=== PATIENT | male | born 1960 | race African-American/Black ===

== ENCOUNTER → 2020-04-11 | Outpatient (CLI) | payer BC ==
[~2020-04-11] MED LIST: ACET-2708 MT; CYCL10TA7 PO; HYDR12.54; LOSA1TAB34 MT; MICAR4
== END | disposition home or self-care (01) ==
LOC: LAB 11:42
PROVIDERS: ATTEND Neurological Surgery
DX: Z01.818 Encounter for other preprocedural examination (principal); Z11.59 Encounter for screening for other viral diseases
CPT/HCPCS: C9803; U0003

== ENCOUNTER 2020-04-14 05:25 | Inpatient (IN) | payer BC ==
[~2020-04-14] VITALS: Ht 167.6 cm; Wt 89.0 kg
[2020-04-14] VITALS (63 sets, daily range): BP systolic 0–161; BP diastolic 0–113
[2020-04-14] MEDS ORDERED: LACTATED RINGERS 1,000 ML IV SCH (06:30)
[2020-04-14] MEDS ORDERED: LIDOCAINE HCL/EPINEPHRINE 1%-EPI 1:100,000 20 ML VIAL ONE (06:34)
[2020-04-14] MEDS ORDERED: BACITRACIN 50,000 UNITS/VIAL ONE (06:34)
[2020-04-14] MEDS ORDERED: THROMBIN (BOVINE) 5000 UNITS/VIAL TOP ONE (06:34)
[2020-04-14] MEDS ORDERED: PROPOFOL 200MG/20ML VIAL IV ONE (07:20)
[2020-04-14] MEDS ORDERED: MORPHINE SULFATE 4 MG/ML CPJ (NOT FOR IM USE) IV PRN (07:30)
[2020-04-14] MEDS ORDERED: HYDROMORPHONE HCL/PF 2MG/ML (OR) ONE (07:35)
[2020-04-14] MEDS ORDERED: NICARDIPINE 100 MG in SODIUM CHLORIDE 0.9% 60 ML IV PRN (09:00)
[2020-04-14] MEDS: DEXT 5%/LACTATED RINGERS 1,000 ML IV SCH ×3 (09:00→20:28)
[2020-04-14] MEDS ORDERED: GLYCOPYRROLATE 0.2 MG/ML 2ML VIAL ONE (09:19)
[2020-04-14] MEDS ORDERED: DIPHENHYDRAMINE INJ IV PRN (10:00)
[2020-04-14] MEDS ORDERED: HYDROMORPHONE PCA 10MG/50ML IV PRN (10:00)
[2020-04-14] MEDS ORDERED: NALOXONE INJ IV PRN (10:00)
[2020-04-14] MEDS ORDERED: ONDANSETRON INJ IV PRN (10:00)
[2020-04-14] MEDS ORDERED: IPRATROPIUM/ALBUTEROL 0.5-3(2.5)MG/3ML NEB HHN PRN (11:45)
[2020-04-14] MEDS: DEXAMETHASONE 4MG/ML 1ML VIAL IV SCH ×3 (12:10→23:36)
[2020-04-14] MEDS: LOSARTAN POTASSIUM 50 MG TABLET PO SCH (13:15)
[2020-04-14] MEDS: CEFAZOLIN 1000MG PREMIX 50 ML IV SCH ×2 (14:00→21:02)
[2020-04-14] MEDS ORDERED: CEFAZOLIN 1000MG PREMIX 50 ML IV SCH (14:00)
[2020-04-14] MEDS ORDERED: CEFAZOLIN SODIUM 1000MG/VIAL IV SCH (14:00)
[2020-04-14 16:23] LABS: HEMATOCRIT. 41.3 % (42.0-52.0); HEMOGLOBIN. 13.6 g/dL (14.0-18.0); MEAN CORPUSCULAR HEMOGLOBIN 26.3 pg (28.0-32.0); MEAN PLATELET VOLUME 8.2 fl (7.4-10.4); PLATELET 293 x1000/uL (130-400); RED BLOOD CELL COUNT 5.16 mill/uL (4.7-6.1); RED CELL DISTRIBUTION WIDTH 17.8 % (11.6-14.6)
[2020-04-14 16:40] LABS: CHLORIDE 105 mEq/L (98-107)
[2020-04-14 18:09] LABS: PLATELET ESTIMATE NORMAL
[2020-04-14] MEDS: THROAT LOZENGES-BENZOCAINE/MENTH/CETYLPYRD CL LOZENGES MM PRN ×2 (19:07→23:40)
[2020-04-14] MEDS: GUAIFENESIN 600MG ER TABLET PO SCH (20:28)
[2020-04-15] VITALS (69 sets, daily range): BP systolic 90–147; BP diastolic 50–111
[2020-04-15] MEDS: DEXT 5%/LACTATED RINGERS 1,000 ML IV SCH ×2 (05:11→16:08)
[2020-04-15] MEDS: CEFAZOLIN 1000MG PREMIX 50 ML IV SCH ×2 (05:18→14:12)
[2020-04-15] MEDS: DEXAMETHASONE 4MG/ML 1ML VIAL IV SCH ×2 (05:18→12:04)
[2020-04-15] MEDS: LOSARTAN POTASSIUM 50 MG TABLET PO SCH (09:02)
[2020-04-15] MEDS: GUAIFENESIN 600MG ER TABLET PO SCH ×2 (09:02→21:57)
[2020-04-15 15:50] LABS: CLARITY URINE CLEAR (CLEAR); COLOR URINE YELLOW (YELLOW); KETONES URINE NEGATIVE (NEGATIVE); LEUKOCYTE ESTERASE URINE NEGATIVE (NEGATIVE); NITRITE URINE NEGATIVE (NEGATIVE); OCCULT BLOOD URINE 3+ (NEGATIVE); PH URINE 6.5 (4.5-8.0); PROTEIN URINE TRACE (NEGATIVE); SPECIFIC GRAVITY URINE 1.009 (1.005-1.030); UROBILINOGEN URINE 0.2 E.U./dL (0.2-1.0)
[2020-04-15 16:29] LABS: *AMPHETAMINES SCREEN URINE NEGATIVE (NEGATIVE); *BARBITURATES SCREEN URINE NEGATIVE (NEGATIVE); *BENZODIAZEPINES SCREEN URINE NEGATIVE (NEGATIVE); *COCAINE SCREEN URINE NEGATIVE (NEGATIVE)
[2020-04-15 16:30] LABS: CANNABINOID URINE SCREEN NEGATIVE (NEGATIVE); METHADONE URINE SCREEN NEGATIVE (NEGATIVE); OPIATES URINE SCREEN PRESUMTIVE POSITIVE (NEGATIVE); PHENCYCLIDINE URINE SCREEN NEGATIVE (NEGATIVE)
[2020-04-15] MEDS: BENZONATATE 100MG CAPSULE PO PRN (22:05)
[2020-04-16] VITALS: BP 123/73
[2020-04-16] MEDS: DEXT 5%/LACTATED RINGERS 1,000 ML IV SCH ×3 (00:38→17:00)
[2020-04-16 04:00] VITALS: BP 138/85
[2020-04-16] MEDS: BENZONATATE 100MG CAPSULE PO PRN (06:14)
[2020-04-16 08:33] VITALS: BP 122/76
[2020-04-16] MEDS: LOSARTAN POTASSIUM 50 MG TABLET PO SCH (09:03)
[2020-04-16] MEDS: GUAIFENESIN 600MG ER TABLET PO SCH (09:03)
[2020-04-16 12:15] VITALS: BP 138/87
[2020-04-16] MEDS ORDERED: HYDROCODONE/ACETAMINOPHEN 10/325MG TABLET PO PRN (12:45)
[2020-04-16] MEDS ORDERED: TAMSULOSIN HCL 0.4MG SR CAPSULE PO SCH (13:00)
[2020-04-16] MEDS ORDERED: HYDR-4001 MT ×2 (16:03→16:05)
[2020-04-16 16:30] LABS: BASOPHILS % 0.3 % (0.0-2.0); EOSINOPHILS % 0.1 % (0.0-5.0); HEMATOCRIT. 39.3 % (42.0-52.0); HEMOGLOBIN. 13.1 g/dL (14.0-18.0); LYMPHOCYTES % 11.3 % (20.0-50.0); MEAN CORPUSCULAR HEMOGLOBIN 26.9 pg (28.0-32.0); MEAN CORPUSCULAR VOLUME 80.6 fL (80.0-94.0); MEAN PLATELET VOLUME 8.7 fl (7.4-10.4); MONOCYTES % 9.7 % (2.0-8.0); NEUTROPHILS % 78.6 % (40.0-76.0); PLATELET 270 x1000/uL (130-400); RED BLOOD CELL COUNT 4.88 mill/uL (4.7-6.1); RED CELL DISTRIBUTION WIDTH 18.4 % (11.6-14.6)
[2020-04-16 16:34] LABS: CHLORIDE 109 mEq/L (98-107)
[2020-04-16 16:51] VITALS: BP 150/92
[2020-04-16 17:12] VITALS: BP 122/76
== END 2020-04-16 17:48 | disposition home or self-care (01) | DRG 471 ==
LOC: OR 05:25 → MICUNO 05:26 → 6EST 04-15 17:58
PROVIDERS: ADMIT Neurological Surgery; ATTEND Neurological Surgery
PROC: 0RG20A0 Fusion of 2 or more Cervical Vertebral Joints with Interbody Fusion Device, Anterior Approach, Anterior Column, Open Approach (ICD-10-PCS; principal; 2020-04-14)
PROC: 0RB30ZZ Excision of Cervical Vertebral Disc, Open Approach (ICD-10-PCS; 2020-04-14)
PROC: 00NW0ZZ Release Cervical Spinal Cord, Open Approach (ICD-10-PCS; 2020-04-14)
PROC: 4A11X4Z Monitoring of Peripheral Nervous Electrical Activity, External Approach (ICD-10-PCS; 2020-04-14)
DX: M48.02 Spinal stenosis, cervical region (principal); G82.50 Quadriplegia, unspecified; M47.12 Other spondylosis with myelopathy, cervical region; M47.22 Other spondylosis with radiculopathy, cervical region; E66.9 Obesity, unspecified; I10 Essential (primary) hypertension; Z98.1 Arthrodesis status; Z68.31 Body mass index [BMI] 31.0-31.9, adult
CPT/HCPCS: 36415; 72040; 72141; 76000; 80048; 80305; 81003; 83036; 85025; 86850; 86900; 88304; 88311; 95863; 95925; 95926; 95928; 95929; 95940; 97116; 97162; 97166; C1713; J0690; J1100; J1170; J2270; J2704; J3490; J7050; J7121; L0172